=== PATIENT | male | born 1960 | race Caucasian/White ===

== ENCOUNTER → 2016-10-09 | Outpatient (CLI) | payer OTHER ==
[2016-10-09 16:24] LABS: ANION GAP 17.9 MEQ/L (3-15)
== END ==
LOC: LAB 15:26
PROVIDERS: ATTEND Orthopaedic Surgery
DX: I10 Essential (primary) hypertension (principal)
CPT/HCPCS: 36415; 80048; 93005

== ENCOUNTER 2016-10-13 09:07 | Day surgery (SDC) | payer OTHER ==
[~2016-10-13] VITALS: Ht 172.7 cm; Wt 84.0 kg
[~2016-10-13 09:07] MED LIST: LACTATED RINGERS 1,000 ML IV SCH; SODIUM CHLORIDE FLUSH 3 ML SYR IV PRN; ceFAZolin 2,000 MG in WATER (STERILE) FOR INJECTION 20 ML IV SCH
[2016-10-13 09:17] VITALS: BP 151/105
[2016-10-13] MEDS ORDERED: PROPOFOL 20 ML IV ONE (09:58)
[2016-10-13] MEDS ORDERED: SUCCINYLCHOLINE 20 MG/ML 10 ML VIAL ONE (09:58)
[2016-10-13] MEDS ORDERED: ALFENTANIL 1,000 MCG/2 ML AMP IV ONE (09:59)
[2016-10-13] MEDS ORDERED: BUPIVACAINE 0.25% (MARCAINE) 30 ML VIAL ONE (10:20)
[2016-10-13] MEDS ORDERED: ePHEDrine SULFATE 50 MG/ML 1 ML AMP ONE (10:39)
[2016-10-13] MEDS ORDERED: HYDROmorphone 1 MG/ML (DILAUDID) SYRINGE ONE (11:42)
[2016-10-13 12:01] VITALS: BP 153/92
[2016-10-13 12:30] VITALS: BP 165/93
[2016-10-13] MEDS ORDERED: ONDANSETRON 2 MG/ML (Z0FRAN) 2 ML VIAL IV PRN (12:50)
[2016-10-13] MEDS ORDERED: HYDROcodone/APAP 5 MG/325 MG (NORCO) TAB PO PRN (12:50)
[2016-10-13] MEDS ORDERED: morphine INJ 4 MG/ML 1 ML SYRINGE IM/IV PRN (12:55)
[2016-10-13 13:08] VITALS: BP 154/100
[2016-10-13 13:40] VITALS: BP 179/99
[2016-10-14] MEDS ORDERED: ASPIRIN 325 MG TAB PO SCH (13:00)
== END 2016-10-13 13:56 | disposition home or self-care (01) ==
LOC: ASC 09:07
PROVIDERS: ATTEND Orthopaedic Surgery
DX: M23.303 Other meniscus derangements, unspecified medial meniscus, right knee (principal); I10 Essential (primary) hypertension; M79.7 Fibromyalgia; F17.210 Nicotine dependence, cigarettes, uncomplicated
CPT/HCPCS: 29881; J0330; J1170; J7120